=== PATIENT | male | born 1975 | race Caucasian/White ===

== ENCOUNTER 2024-08-26 01:49 | Observation (INO) | payer SELFPAY ==
[2024-08-26] VITALS (21 sets, daily range): BP systolic 104–158; BP diastolic 77–121; PULSE 90–136; RESP 14–18; TEMP 36.4–36.8; O2SAT 93–100; BMI 24.7; BMI 27.3
--- NOTE | 2024-08-26 | ECHO_ITS ---
Patient Info Name: Khurram Cote Age: 49 years : 1975 Gender: Male Ht: 66 in Wt: 153 lbs BSA: 1.81 m2 HR: 112 bpm BP: 143 / 94 mmHg Heart Rhythm: Tachycardia Technical Quality: Fair Exam Date: 08/26/2024 9:12 AM Exam Location: Echo Lab Patient Status: Inpatient Admit Date: 08/26/2024 Staff Ordering Physician: Rita Cade APRN Ornamental Metalwork Designer: Mariposa Ge RDCS Attending Provider: Jimmy Galeas MD Referring Physician: Rayo MCCARTHY; Exam Type: CA echo doppler color flow Study Info Indications - Chesy pain Complete two-dimensional, color flow and Doppler transthoracic echocardiogram is performed. Summary 1. Complete two-dimensional, color flow and Doppler transthoracic echocardiogram is performed. 2. The left ventricle is normal in size with hyperdynamic systolic function. Left ventricular ejection fraction is visually estimated to be greater than 70%. 3. The right ventricle is normal in size and systolic function. 4. There are no significant valvular abnormalities in this study. Left Ventricle The left ventricle is normal in size with hyperdynamic systolic function. Left ventricular ejection fraction is visually estimated to be greater than 70%. Right Ventricle The right ventricle is normal in size and systolic function. Left Atria The left atrium is normal size. Right Atria The right atrium is normal size. Atrial Septum The atrial septum is not well visualized. Aortic Valve The aortic valve is trileaflet and opens well. There is no aortic regurgitation. Pulmonic Valve The pulmonic valve is normal. There is no pulmonic valve regurgitation. Mitral Valve The mitral valve is normal. There is no mitral regurgitation. Tricuspid Valve The tricuspid is normal. There is trace tricuspid regurgitation. Pericardium/Pleural Pericardium is normal in appearance with no evidence for significant pericardial effusion. Inferior Vena Cava Inferior vena cava is not well visualized. Aorta The aortic root at the level of the sinus of Valsalva measures 3.3 cm in diameter. Left Ventricular Outflow Tract Name Value Normal LVOT 2D LVOT Diameter 2.1 cm LVOT Doppler LVOT Peak Gradient 5 mmHg LVOT Mean Gradient 3 mmHg LVOT VTI 18 cm LVOT VTI/AV VTI Ratio 0.9 LVOT Stroke Volume 61 ml LVOT CO 6.3 l/min LVOT CI 3.5 l/min/m2 Pulmonic Valve Name Value Normal RVOT Doppler RVOT Peak Gradient 3 mmHg PV Doppler PV Peak Gradient 4 mmHg Mitral Valve Name Value Normal MV Doppler MV Decel [place] 231 cm/s2 MV PHT 62 ms MV Area (PHT) 3.5 cm2 4.0-5.0 MV Diastolic Function MV E Peak Velocity 50 cm/s MV A Peak Velocity 76 cm/s MV E/A 0.6 MV Decel Time 215 ms MV Annular TDI MV E/e' (Septal) 6.3 <=8.0 MV E/e' (Lateral) 6.1 <=8.0 MV E/e' (Average) 6.2 Tricuspid Valve Name Value Normal TV Regurgitation Doppler TR Peak Velocity 217 cm/s TR Peak Gradient 19 mmHg Aortic Valve Name Value Normal AV Doppler AV Peak Velocity 126 cm/s AV Peak Gradient 6 mmHg AV Mean Gradient 4 mmHg AV VTI 19 cm AV Area (Cont Eq VTI) 3.3 cm2 >=3.0 AV Area (Cont Eq [place]) 3.2 cm2 AV Regurgitation 2D LVOT Area 3.5 cm2 Ventricles Name Value Normal LV Dimensions 2D/MM IVS Diastolic Thickness (2D) 0.9 cm 0.6-1.0 LVID Diastole (2D) 5.1 cm 4.2-5.8 LVIW Diastolic Thickness (2D) 0.9 cm 0.6-1.0 LVID Systole (2D) 3.2 cm 2.5-4.0 LVOT Diameter 2.1 cm LV Mass (2D Cubed) 154.63 g 88.00-224.00 LV Mass Index (2D Cubed) 86 g/m2 49-115 Relative Wall Thickness (2D) 0.35 LV Fractional Shortening/Ejection Fraction 2D/MM LV Fractional Shortening (2D) 38 % 25-43 LV EF (2D Teicholz) 67 % 52-72 LV Diastolic Volume (4C MOD) 100 ml LV EF (4C MOD) 68 % LV Diastolic Volume (2C MOD) 95 ml LV EF (2C MOD) 68 % LV Diastolic Volume (BP MOD) 99 ml 62-150 LV Diastolic Volume Index (BP MOD) 55 ml/m2 34-74 LV Systolic Volume (BP MOD) 33 ml 21-61 LV Systolic Volume Index (BP MOD) 18 ml/m2 11-31 LV EF (BP MOD) 67 % 52-72 LV Diastolic Length (4C) 7.9 cm LV Systolic Length (4C) 5.6 cm LV Stroke Volume (4C MOD) 68 ml Atria Name Value Normal LA Dimensions LA Volume (4C A-L) 50 ml LA Volume (BP A-L) 45 ml RA Dimensions RA Area (4C) 12.2 cm2 <=18.0 Report Signatures
--- NOTE | ~2024-08-26 | XR_ITS ---
EXAMINATION: XR chest 1V portable DATE: 08/26/2024 02:40 INDICATION: Chest pain. TECHNIQUE: A single frontal view of the chest was obtained. COMPARISON: Chest CT 08/26/2024 FINDINGS: There is no pneumonia, pleural effusion, or pneumothorax. The heart size is normal. IMPRESSION: 1. No acute cardiopulmonary disease. Reviewed, dictated and finalized at location A.
--- NOTE | ~2024-08-26 | CT_ITS ---
EXAMINATION: CTA chest PE protocol DATE: 08/26/2024 03:14 INDICATION: Chest pain. TECHNIQUE: Computed tomography angiography (CTA) of the chest was performed with 100 mL Omnipaque-350 intravenous contrast timed to evaluate the pulmonary arteries. Coronal maximum intensity projection 3D-reconstructions were created by the technologist. Automated exposure control and iterative reconst ruction technique were employed. The dose-length product was 288.44 mGy-cm. COMPARISON: Chest single view 08/26/2024 FINDINGS: The lungs demonstrate mild atelectasis. A calcified left lung nodule is consistent with old granulomatous disease. No pleural effusion. The heart size is normal. No pericardial effusion. There is no pulmonary embolus. There is diffuse hepatic steatosis. There is mild thoracic spondylosis. IMPRESSION: 1. No pulmonary embolus. 2. Diffuse hepatic steatosis. Reviewed, dictated and finalized at location A.
--- NOTE | 2024-08-26 02:04 | ECG_ITS ---
Test Date: 2024-08-26 01:48:56 Measurements Intervals [place] Rate: 122 P: 71 MA: 139 QRS: 6 QRSD: 110 T: 34 QT: 305 QTc: 435 Interpretive Statements SINUS TACHYCARDIA INDETERMINATE AXIS ABNORMAL RHYTHM ECG No previous ECG available for comparison Electronically Signed On 08-26-2024 11:45:19 CDT by Shaggy Talley M.D.
--- NOTE | 2024-08-26 02:05 | ED_ITS ---
HPI - Alcohol General Chief Complaint: Alcohol <Albania Melendez PA-C - Last Filed: 08/26/24 03:31> Stated Complaint: Alcohol <Albania Melendez PA-C - Last Filed: 08/26/24 03:31> Time Seen by Provider: 08/26/24 01:55 <Albania Melendez PA-C - Last Filed: 08/26/24 03:31> History of Present Illness HPI narrative: 49-year-old male with reported history of IL 4 years ago and ETOH abuse presents to the ED via EMS for ETOH withdrawals. Patient states he has been drinking a 5th of whiskey a day since he was 14 years old. He has attempted to stop intermittently without success. States at 6:00 p.m. yesterday evening he had his last drink and stopped cold turkey and hopes to not drink anymore. States he woke up at midnight with pain to the center of his chest that feels like someone is ?poking him?. He states he developed intermittent dyspnea, headache, tremors, anxiety the times well. Patient denies history of cardiac stents. He does admit to a history of alcohol withdrawal seizures about 5 years ago. He denies history of requiring intubation due to alcohol withdrawal. Denies drug use. <Albania Melendez PA-C - Last Filed: 08/26/24 03:31> Related Data Home Medications: Home Medications ?Medication ?Instructions ?Recorded ?Confirmed ?Last Taken ?Type famotidine 20 mg tablet (Acid 20 mg PO DAILY PRN indigestion 08/26/24 08/26/24 Unknown History Controller) multivitamin (Daily Multi-Vitamin 1 tablet PO DAILY 08/26/24 08/26/24 Unknown History tablet) <DOM Villa Last Filed: 08/26/24 03:31> Allergies/Adverse Reactions: Allergies Allergy/AdvReac Type Severity Reaction Status Date / Time No Known Allergies Allergy Verified 08/26/24 01:54 <DOM Villa Last Filed: 08/26/24 03:31> Review of Systems 2 Review of Systems: All systems reviewed & are unremarkable except as noted in HPI and below <Albania Melendez PA-C - Last Filed: 08/26/24 03:31> [facility] Past Medical History Medical History: Medical History Myocardial infarct Hepatic steatosis Alcohol abuse <Albania Melendez PA-C - Last Filed: 08/26/24 03:31> Family History Family History: Family History Other Unknown family medical history <Albania Melendez PA-C - Last Filed: 08/26/24 03:31> Social History Social History: Social History Smoking status: Current every day smoker Tobacco type: e-cigarettes/vaping Alcohol intake: current Substance use: never Last use: 08/25/24 @1800 Do You Feel Safe in your Home?: Yes Lack of Transportation: No Lack of Food: Sometimes True Current Housing: I Do Not Have Housing Concerned About Future Housing: YES Difficulty Paying Gas/Electric Bills: No Difficulty Paying for Meds: No Currently Unemployed: YES Education: Grade School Difficulty w/ Childcare or Family Care: No Spiritual care concerns: No <Albania Melendez PA-C - Last Filed: 08/26/24 03:31> Exam 2 Narrative: GENERAL: Ill-appearing, smells of ETOH HEAD: Normocephalic, atraumatic. EYES: PERRLA and EOMI. ENT: Nares clear, no rhinorrhea or epistaxis. Mucous membranes moist. Tongue fasciculations NECK: Supple. CHEST: Clear to auscultation. No respiratory distress. HEART: Regular rate and rhythm. No murmur heard. Normal peripheral pulses. ABDOMEN: Soft, nontender, nondistended, normal active bowel sounds. EXTREMITIES: Normal range of motion. No edema. SKIN: Warm, dry, no rash. NEURO: No focal deficits. Alert and oriented x4. Course tremors throughout bilateral upper extremities <Albania Melendez PA-C - Last Filed: 08/26/24 03:31> Course DAY CARE ATTENDANT/PA Physician Supervision PA signed patietn out to me pending result of CT PE study which was performed because patient had complained of CP and had dimer >1. CIWA score initially 16 then 14. Received Valium doses. Patient still having symptoms per RN. CIWA calculated and improved but still 12. Phenobarbital ordered. CT results as below. Discussed with computer numerical control grinder hospitalist NICOLE Salinas. Patient to be admitted to IMU with telemetry. <Loren Wong MD - Last Filed: 08/26/24 10:07> Vital Signs Vital signs: Vital Signs Temperature 97.5 F L 08/26/24 01:55 Pulse Rate 113 H 08/26/24 01:55 Respiratory Rate 16 08/26/24 01:55 Blood Pressure 158/121 H 08/26/24 01:55 Pulse Oximetry 96 08/26/24 01:55 Oxygen Delivery Room Air 08/26/24 01:55 Temperature 98.3 F 08/26/24 08:00 Pulse Rate 136 H 08/26/24 08:00 Respiratory Rate 16 08/26/24 08:00 Blood Pressure 121/91 H 08/26/24 08:00 Pulse Oximetry 98 08/26/24 08:00 Oxygen Delivery Room Air 08/26/24 06:39 <Albania Melendez PA-C - Last Filed: 08/26/24 03:31> Vital Signs Temperature 97.5 F L 08/26/24 01:55 Pulse Rate 113 H 08/26/24 01:55 Respiratory Rate 16 08/26/24 01:55 Blood Pressure 158/121 H 08/26/24 01:55 Pulse Oximetry 96 08/26/24 01:55 Oxygen Delivery Room Air 08/26/24 01:55 Temperature 98.3 F 08/26/24 08:00 Pulse Rate 136 H 08/26/24 08:00 Respiratory Rate 16 08/26/24 08:00 Blood Pressure 121/91 H 08/26/24 08:00 Pulse Oximetry 98 08/26/24 08:00 Oxygen Delivery Room Air 08/26/24 06:39 <Loren Wong MD - Last Filed: 08/26/24 10:07> MDM - Alcohol MDM Narrative Medical decision making narrative: 49-year-old male with a history of ETOH abuse and IL 4 years ago presents to emergency department for chest pain that started at midnight and EtOH withdrawal. Patient's last drink was 8 hours ago. He is endorsing anxiety, headache, tremors. CIWA is 16. Vitals with tachycardia 113 and elevated blood pressure. On exam patient is noted to have coarse tremors to bilateral upper extremities and tongue fasciculations. Will provide IV fluids, Valium, thiamine and obtain lab work, EKG, troponins, chest x-ray and closely monitor. Seizure precautions ordered. EKG shows sinus tachycardia rate of 122, normal NC interval, normal QRS duration, normal QTC, indeterminate axis, no ischemic changes. Troponin undetectable. CBC without leukocytosis or anemia. Platelets are 40, no prior for comparison. Chemistries with an AST 177 and ALT of 78 consistent with chronic alcohol abuse. Lipase is within normal limits. ETOH is 229. INR 0.9. D-dimer elevated to 1.98, therefore CTA chest PE obtained. Pt did require repeat doses of Valium with improvement. Tachycardia has resolved. Pending CTA chest PE at time of sign-out to Dr. Wong. Plan to admit for ETOH withdrawal. <Albania Melendez PA-C - Last Filed: 08/26/24 03:31> Lab Data Result diagrams: 08/26/24 02:14 08/26/24 02:14 <Albania Melendez PA-C - Last Filed: 08/26/24 03:31> Labs: Lab Results 08/26/24 Range/Units 02:14 WBC 5.3 (4.5-10.0) K/mm3 RBC 4.22 L (4.6-6.20) M/mm3 Hgb 15.0 (14.0-18.0) g/dL Hct 42.7 (42.0-52.0) % MCV 101.2 H (80-100) fl MCH 35.5 H (26-34) pg MCHC 35.1 (32-36) g/dl RDW 13.9 (11.5-14.5) % Plt Count 40 L (150-375) k/mm3 MPV 11.0 H (7.4-10.4) fl Immature Gran % (Auto) 0.2 (0-0.5) % Neut % (Auto) 65.8 (45.5-73.1) % Lymph % (Auto) 21.3 (18.3-44.2) % [place] % (Auto) 10.3 H (2.6-8.5) % Eos % (Auto) 1.1 (0-4.4) % Baso % (Auto) 1.3 H (0.2-1.2) % Lymph # (Auto) 1.12 (0.9-3.2) K/mm3 [place] # (Auto) 0.5 (0.1-0.6) K/mm3 Eos # (Auto) 0.1 (0-0.3) K/mm3 Baso # (Auto) 0.1 (0.0-0.1) K/mm3 Abs Immat Gran (auto) 0.01 (0.00-0.031) K/mm3 Absolute Neuts (auto) 3.5 (1.3-6.7) K/mm3 Absolute Nucleated RBC 0.000 (0.0-0.012) K/mm3 Nucleated RBC % 0.0 (0.0-0.2) % % Immature Plt Fraction 7.9 (0.9-11.2) % PT 12.7 (11.1-14.7) Seconds INR 0.9 APTT 26.0 (22.3-36.8) Seconds D-Dimer 1.98 H (<0.48) ug/mL Sodium 140 (137-145) mmol/L Potassium 3.9 (3.4-5.0) mmol/L Chloride 98 (98-107) mmol/L Carbon Dioxide 23 (22-30) mmol/L Anion Gap 19 H (4-12) mmol/L BUN 6 L (9-20) mg/dL Creatinine 0.55 L (0.7-1.3) mg/dL Estim Creat Clear Calc 125 ml/min Estimated GFR > 60 (59 - ) Glucose 80 (65-110) mg/dL Calcium 9.3 (8.4-10.2) mg/dL Total Bilirubin 0.9 (0.2-1.3) mg/dL AST 177 H (17-59) U/L ALT 78 H (6-50) U/L Alkaline Phosphatase 85 (38-126) U/L Troponin I < 0.012 (0.000-0.034) ng/mL NT-Pro-B Natriuret Pep < 20 (19.9-100) pg/mL Total Protein 8.0 (6.3-8.2) g/dL Albumin 4.9 (3.5-5.1) g/dL Lipase 154 (23-300) U/L Ethyl Alcohol 229 (<10) mg/dL <Albania Melendez PA-C - Last Filed: 08/26/24 03:31> Lab Results 08/26/24 Range/Units 02:14 WBC 5.3 (4.5-10.0) K/mm3 RBC 4.22 L (4.6-6.20) M/mm3 Hgb 15.0 (14.0-18.0) g/dL Hct 42.7 (42.0-52.0) % MCV 101.2 H (80-100) fl MCH 35.5 H (26-34) pg MCHC 35.1 (32-36) g/dl RDW 13.9 (11.5-14.5) % Plt Count 40 L (150-375) k/mm3 MPV 11.0 H (7.4-10.4) fl Immature Gran % (Auto) 0.2 (0-0.5) % Neut % (Auto) 65.8 (45.5-73.1) % Lymph % (Auto) 21.3 (18.3-44.2) % [place] % (Auto) 10.3 H (2.6-8.5) % Eos % (Auto) 1.1 (0-4.4) % Baso % (Auto) 1.3 H (0.2-1.2) % Lymph # (Auto) 1.12 (0.9-3.2) K/mm3 [place] # (Auto) 0.5 (0.1-0.6) K/mm3 Eos # (Auto) 0.1 (0-0.3) K/mm3 Baso # (Auto) 0.1 (0.0-0.1) K/mm3 Abs Immat Gran (auto) 0.01 (0.00-0.031) K/mm3 Absolute Neuts (auto) 3.5 (1.3-6.7) K/mm3 Absolute Nucleated RBC 0.000 (0.0-0.012) K/mm3 Nucleated RBC % 0.0 (0.0-0.2) % % Immature Plt Fraction 7.9 (0.9-11.2) % PT 12.7 (11.1-14.7) Seconds INR 0.9 APTT 26.0 (22.3-36.8) Seconds D-Dimer 1.98 H (<0.48) ug/mL Sodium 140 (137-145) mmol/L Potassium 3.9 (3.4-5.0) mmol/L Chloride 98 (98-107) mmol/L Carbon Dioxide 23 (22-30) mmol/L Anion Gap 19 H (4-12) mmol/L BUN 6 L (9-20) mg/dL Creatinine 0.55 L (0.7-1.3) mg/dL Estim Creat Clear Calc 125 ml/min Estimated GFR > 60 (59 - ) Glucose 80 (65-110) mg/dL Calcium 9.3 (8.4-10.2) mg/dL Total Bilirubin 0.9 (0.2-1.3) mg/dL AST 177 H (17-59) U/L ALT 78 H (6-50) U/L Alkaline Phosphatase 85 (38-126) U/L Troponin I < 0.012 (0.000-0.034) ng/mL NT-Pro-B Natriuret Pep < 20 (19.9-100) pg/mL Total Protein 8.0 (6.3-8.2) g/dL Albumin 4.9 (3.5-5.1) g/dL Lipase 154 (23-300) U/L Ethyl Alcohol 229 (<10) mg/dL <Loren Wong MD - Last Filed: 08/26/24 10:07> Imaging Data Radiologist's impression: ITS Impressions Chest X-Ray 08/26/24 05:28 IMPRESSION: 1. No acute cardiopulmonary disease. Chest CTA 08/26/24 05:46 IMPRESSION: 1. No pulmonary embolus. 2. Diffuse hepatic steatosis. <Albania Melendez PA-C - Last Filed: 08/26/24 03:31> ITS Impressions Chest X-Ray 08/26/24 05:28 IMPRESSION: 1. No acute cardiopulmonary disease. Chest CTA 08/26/24 05:46 IMPRESSION: 1. No pulmonary embolus. 2. Diffuse hepatic steatosis. CTA Chest STat Rad: Additional imaging of the abdomen was obtained. Motion artifact limits evaluation. Despite this, no evidence of pulmonary embolism within the pulmonary outflow tract or proximal branches. Mild dependent atelectatic changes. Dependent hepatic attenuation index. Findings can be seen with hepatic steatosis. Otherwise, no acute findings within the chest or visualized abdomen. <Loren Wong MD - Last Filed: 08/26/24 10:07> Discharge Plan Discharge Clinical Impression: Thrombocytopenia, Atypical chest pain Alcohol withdrawal Qualifiers: Complication of substance-induced condition: uncomplicated Qualified Code(s): F 10.930 - Alcohol use, unspecified with withdrawal, uncomplicated <Albania Melendez PA-C - Last Filed: 08/26/24 03:31> Patient Disposition: Still a Patient <Albania Melendez PA-C - Last Filed: 08/26/24 03:31> Condition: Stable <Albania Melendez PA-C - Last Filed: 08/26/24 03:31>
[2024-08-26] MEDS: diazePAM INJ (*CRX) 10 MG/2 ML SYRINGE 5 MG IV PUSH ×3 (02:09→03:34)
[2024-08-26] MEDS: THIAMINE HCL 200 MG/2 ML VIAL 100 MG IV PUSH (02:09)
[2024-08-26] MEDS: SODIUM CHLORIDE 0.9% IV 1,000 ML 999 ML IV CONT (02:12)
[2024-08-26 02:22] LABS: Basophils Absolute Auto 0.1 K/mm3 (0.0-0.1); Basophils Percent Auto 1.3 % (0.2-1.2); Eosinophils Absolute Auto 0.1 K/mm3 (0-0.3); Eosinophils Percent Auto 1.1 % (0-4.4); Hematocrit 42.7 % (42.0-52.0); Immature Granulocyte Absolute 0.01 K/mm3 (0.00-0.031); Immature Granulocyte Percent A 0.2 % (0-0.5); Immature Platelet Fraction Pct 7.9 % (0.9-11.2); Lymphocytes Absolute Auto 1.12 K/mm3 (0.9-3.2); Lymphocytes Percent Auto 21.3 % (18.3-44.2); Mean Corpuscular HGB Conc 35.1 g/dl (32-36); Mean Corpuscular Hemoglobin 35.5 pg (26-34); Mean Corpuscular Volume 101.2 fl (80-100); Monocytes Absolute Auto 0.5 K/mm3 (0.1-0.6); Monocytes Percent Auto 10.3 % (2.6-8.5); Neutrophils Absolute Auto 3.5 K/mm3 (1.3-6.7); Neutrophils Percent Auto 65.8 % (45.5-73.1); Platelet Count Result 40 k/mm3 (150-375); Red Blood Count 4.22 M/mm3 (4.6-6.20); Red Cell Distribution Width 13.9 % (11.5-14.5); White Blood Count 5.3 K/mm3 (4.5-10.0)
[2024-08-26 02:31] LABS: INR 0.9; Prothrombin Time 12.7 Seconds (11.1-14.7)
[2024-08-26 02:32] LABS: Ethanol 229 mg/dL (<10)
[2024-08-26 02:35] LABS: Alanine Aminotransferase 78 U/L (6-50); Albumin Level 4.9 g/dL (3.5-5.1); Alkaline Phosphatase 85 U/L (38-126); Anion Gap 19 mmol/L (4-12); Aspartate Amino Transferase 177 U/L (17-59); Bilirubin,Total 0.9 mg/dL (0.2-1.3); Blood Urea Nitrogen 6 mg/dL (9-20); Calcium 9.3 mg/dL (8.4-10.2); Carbon Dioxide 23 mmol/L (22-30); Chloride 98 mmol/L (98-107); Estimated CRCL calculation 125 ml/min; Estimated Glomerular Filt Rate > 60; Glucose 80 mg/dL (65-110); Lipase 154 U/L (23-300); Potassium 3.9 mmol/L (3.4-5.0); Sodium 140 mmol/L (137-145)
[2024-08-26 02:43] LABS: D Dimer 1.98 ug/mL (<0.48)
[2024-08-26 02:53] LABS: Troponin I < 0.012 ng/mL (0.000-0.034)
[2024-08-26 03:03] LABS: NT Pro B Type Natriuretic Pept < 20 pg/mL (19.9-100)
[2024-08-26] MEDS: PHENobarbitaL sodium (*CRX) 130 MG/ML VIAL 260 MG IV PUSH (04:56)
--- NOTE | 2024-08-26 05:36 | P.HP_ITS ---
H&P: HPI History of Present Illness Date/Time: 08/26/24 05:36 Chief Complaint: Alcohol withdrawal Narrative: This is a 49 year old male with a significant past medical history of [place], ETOH abuse, tobacco abuse who presented to the hospital with alcohol withdrawal and chest pain. Patient states he has drank a 5th of whiskey a day since he was 14 years old. He has tried stopping cold turkey before however has been unsuccessful in the past. Patient states that his last alcohol was consumed at 6 pm last night. He went to bed and woke up around midnight with substernal chest pain. He describes it as intermittent and does not radiate. He denies any fever, chills, nausea, vomiting, diarrhea, abdominal pain, or shortness of breath. Work up in the hospital included a chest x-ray which was negative for any acute cardiopulmonary disease. Chest CTA was negative for PE, shown diffuse hepatic steatosis. Initial labs shown a WBC 5.3, RBC 4.22, Plt count 40, D-dimer 1.98, Anion gap 19, Creatinine 0.55, AST 177, ALT 78, Troponin <0.012, ETOH 229. EKG shown sinus tachycardia with incomplete bundle branch block with a rate of 122, QTc 435. Patient was given 1L NS, Valium and Phenobarbital in the ER. Review of Systems Review of Systems: All systems reviewed & are unremarkable except as noted in HPI and below PMFSH Past Medical History Medical History Myocardial infarct Hepatic steatosis Alcohol abuse Family History Family History Other Unknown family medical history Social History Social History Smoking status: Current every day smoker Tobacco type: e-cigarettes/vaping Alcohol intake: current Substance use: never Last use: 08/25/24 @1800 Do You Feel Safe in your Home?: Yes Lack of Transportation: No Lack of Food: Sometimes True Current Housing: I Do Not Have Housing Concerned About Future Housing: YES Difficulty Paying Gas/Electric Bills: No Difficulty Paying for Meds: No Currently Unemployed: YES Education: Grade School Difficulty w/ Childcare or Family Care: No Spiritual care concerns: No Meds Home Medications and Allergies Home Medications ?Medication ?Instructions ?Recorded ?Confirmed ?Type famotidine 20 mg tablet (Acid 20 mg PO DAILY PRN indigestion 08/26/24 08/26/24 History Controller) multivitamin (Daily Multi-Vitamin 1 tablet PO DAILY 08/26/24 08/26/24 History tablet) Allergies Allergy/AdvReac Type Severity Reaction Status Date / Time No Known Allergies Allergy Verified 08/26/24 01:54 Vital Signs Vital Signs - 24 hr 08/26/24 01:55 08/26/24 02:17 Temperature 97.5 F L Pulse Rate 113 H 112 H Respiratory Rate 16 14 Blood Pressure 158/121 H 134/97 H Pulse Oximetry 96 93 Oxygen Delivery Room Air Exam Narrative: General: In no acute distress, malnourished Head: atraumatic, no encephalopathy, reporting headache Eyes: PERRLA, sclera injected ENT: moist mucous membranes, nasal passages clear Neck: supple, no JVD, no adenopathy, trachea midline Cardiac: Normal S1 and S2. RRR, No murmur, gallops or friction rubs, peripheral pulses intact. Reports substernal chest pain intermittently Respiratory: Lungs clear to auscultation, no adventitious lung sounds, currently on room air Gastrointestinal: soft, non-distended, non-tender, normoactive bowel sounds. : voiding without difficulty. Extremities: moves all extremities well, no edema Skin: clean, dry, intact. No wounds or lesions. Neuro: Alert and oriented x4, cranial nerves intact, no neuro deficits. Psych: normal mood, normal affect, interactive H&P: Results Labs Labs: Short CBC 08/26/24 Range/Units 02:14 WBC 5.3 (4.5-10.0) K/mm3 Hgb 15.0 (14.0-18.0) g/dL Hct 42.7 (42.0-52.0) % Plt Count 40 L (150-375) k/mm3 BMP 08/26/24 02:14 Sodium 140 Potassium 3.9 Chloride 98 Carbon Dioxide 23 BUN 6 L Creatinine 0.55 L Glucose 80 Calcium 9.3 Cardiac Enzymes 08/26/24 Range/Units 02:14 Troponin I < 0.012 (0.000-0.034) ng/mL Liver Function 08/26/24 Range/Units 02:14 Total Bilirubin 0.9 (0.2-1.3) mg/dL AST 177 H (17-59) U/L ALT 78 H (6-50) U/L Alkaline Phosphatase 85 (38-126) U/L Albumin 4.9 (3.5-5.1) g/dL Imaging Chest x-ray: Radiologist's impression: EXAMINATION: XR chest 1V portable DATE: 08/26/2024 02:40 INDICATION: Chest pain. TECHNIQUE: A single frontal view of the chest was obtained. COMPARISON: Chest CT 08/26/2024 FINDINGS: There is no pneumonia, pleural effusion, or pneumothorax. The heart size is normal. IMPRESSION: 1. No acute cardiopulmonary disease. Reviewed, dictated and finalized at location A. Chest CTA: Radiologist's impression: EXAMINATION: CTA chest PE protocol DATE: 08/26/2024 03:14 INDICATION: Chest pain. TECHNIQUE: Computed tomography angiography (CTA) of the chest was performed with 100 mL Omnipaque-350 intravenous contrast timed to evaluate the pulmonary arteries. Coronal maximum intensity projection 3D-reconstructions were created by the technologist. Automated exposure control and iterative reconstruction technique were employed. The dose-length product was 288.44 mGy-cm. COMPARISON: Chest single view 08/26/2024 FINDINGS: The lungs demonstrate mild atelectasis. A calcified left lung nodule is consistent with old granulomatous disease. No pleural effusion. The heart size is normal. No pericardial effusion. There is no pulmonary embolus. There is diffuse hepatic steatosis. There is mild thoracic spondylosis. IMPRESSION: 1. No pulmonary embolus. 2. Diffuse hepatic steatosis. Reviewed, dictated and finalized at location A. Assessment and Plan Assessment and plan (1) Atypical chest pain: Code(s): R07.89 - Other chest pain Status: Acute Assessment and Plan: Reports waking up around midnight with midsternal chest pain * EKG shown sinus tachycardia with incomplete right bundle branch block with a rate of 122, QTc 435 * continuous telemetry monitoring * Admit to IMU * chest x-ray negative * Chest CTA was negative for PE, shown diffuse hepatic steatosis. * D-dimer 1.98, troponin 0.012>0.015 * Echocardiogram ordered considering history of [place] (2) Alcohol withdrawal: Qualifiers: Complication of substance-induced condition: uncomplicated Qualified Code(s): F10.930 - Alcohol use, unspecified with withdrawal, uncomplicated Code(s): F10.939 - Alcohol use, unspecified with withdrawal, unspecified Status: Acute Assessment and Plan: Patient states that he drank last a 5th of whisky yesterday evening. He states he drinks a 5th of whiskey every day since he was 14 years old. He attempted stopping before and has been unsuccessful. Patient states he has went through withdrawal in the past and has had seizures. l * [facility] protocol * ETOH level 229 on presentation * Patient was given Valium and phenobarbital down in the ER * Continue seizure precautions * thiamin 500 mg IVPB ordered daily * Continue Multivitamin * Start folic acid * Industrial Specialist consult * Consult to case management (3) Thrombocytopenia: Code(s): D69.6 - Thrombocytopenia, unspecified Status: Acute Assessment and Plan: Likely secondary to alcoholism/ liver disease * Platelet count 40 * Will check vitamin B12 and folic acid * Consult placed to Hematology/Oncology (4) Transaminitis: Code(s): R74.01 - Elevation of levels of liver transaminase levels Status: Acute Assessment and Plan: * AST 177, ALT 78 * Continue to trend * CTA of the chest shown diffuse hepatic steatosis Quality VTE Prophylaxis VTE prophylaxis: mechanical ordered Hospitalist [facility] Advance Care Plan I have confirmed that the patient's Advanced Care Plan is present, code status is documented, or surrogate decision maker is listed in patient medical record.: Yes Medication Reconciliation I have utilized all available resources to obtain, update and review the patients current medications (includes all prescriptions, OTC, herbals, cannabis, and nutritional supplements).: Yes
--- NOTE | 2024-08-26 06:00 | ADMGEN ---
This patient, Khurram Cote, was admitted to IMU Room 205-01. Patient/family oriented to hospital policies and general routines including ID bracelet, bed and alarms, visiting hours, pain management, procedures, bathroom and other care routines, personal items, smoking policy, room service/diet, and visiting hours. Information on how to activate the Rapid Response Team has been discussed. Patient/Family are encouraged to report perceived risks to care and to ask questions if they do not understand what they are told or what they should do.
[2024-08-26 06:46] LABS: Troponin I 0.015 ng/mL (0.000-0.034)
[2024-08-26 07:12] LABS: Add Urine Microscopic? NO; Appearance Urine Clear (Clear); Bilirubin Urine Negative (Negative); Blood Urine Negative (Negative); Color Urine Yellow (Yellow); Glucose Urine UA Negative (Negative); Ketones Urine 1+ mg/dL (Negative); Leukocyte Esterase Ur Negative LEU/UL (Negative); Nitrate Urine Negative (Negative); Protein Urine Negative (Negative); Specific Grav Ur > 1.045 (1.001-1.035); pH Urine 6.5 (5.0-9.0)
[2024-08-26 07:25] LABS: Magnesium 1.3 mg/dL (1.6-2.3)
[2024-08-26 07:28] LABS: Amphetamine Screen Urine Negative (Negative); Barbiturate Screen Urine Positive (Negative); Benzodiazepines Screen Urine Negative (Negative); Cannabinoid Screen Urine Negative (Negative); Cocaine Screen Urine Positive (Negative); Methadone Screen Urine Negative (Negative); Opiate Screen Urine Negative (Negative); Phencyclidine Screen Urine Negative (Negative)
[2024-08-26 08:17] LABS: Troponin I 0.019 ng/mL (0.000-0.034)
[2024-08-26 08:58] LABS: Folic Acid 2.4 ng/mL (2.76->20)
[2024-08-26] MEDS: LORazepam INJ (*CRX) 2 MG/ML VIAL IV PUSH ×2 (09:18→20:10)
[2024-08-26] MEDS: MULTIVITAMINS THERAPEUTIC TAB (*BKC) 1 TABLET PO (09:18)
[2024-08-26] MEDS: FOLIC ACID 1 MG TABLET PO (09:18)
[2024-08-26] MEDS: THIAMINE HCL INJ 500 MG in SODIUM CHLORIDE 0.9% IV 100 ML 208 MG IVPB (10:42)
[2024-08-26] MEDS: chlordiazePOXIDE (*CRX) 25 MG CAPSULE PO ×2 (11:17→17:13)
[2024-08-26 11:28] LABS: Glucose Point of Care 118 mg/dl (65-105)
--- NOTE | 2024-08-26 12:34 | WPDONCCN ---
Assessment and Plan Assessment and plan (1) Thrombocytopenia: Code(s): D69.6 - Thrombocytopenia, unspecified Status: Acute Assessment and Plan: Patient is the 49-year-old male with history of alcohol abuse has been drinking alcohol since age of 14. He tried quitting alcohol but remains unsuccessful. CTA chest was performed due to chest discomfort showed hepatic steatosis. There was no evidence of pulmonary embolism[place] [address] but he has no symptoms of bleeding and bruising. His thrombocytopenia secondary to hepatic steatosis and alcohol-induced bone marrow suppression. I recommended strongly to quit drinking slowly. Other labs showed normal vitamin B12 level. I will check iron studies as well. He will follow-up in the office for further monitoring of his platelet counts. No need for bone marrow biopsy or testing and testing for autoimmune thrombocytopenia as the etiology for his thrombocytopenia is quite evident. Follow-up in the office after the discharge. HPI Data of Consult Date/Time: 08/26/24 12:34 Requesting Physician: Roderick Galeas MD Primary Care Provider: UNKNOWN,DOCTOR Consult Narrative Narrative: Khurram Cote is a 49 year old male with history of alcohol abuse and previous history of [place] was brought into the hospital with alcohol withdrawal symptoms and chest discomfort. He denies any fever chills. Denies any nausea vomiting and abdominal pain. CTA chest was done that showed no evidence of pulmonary embolism. There was diffuse hepatic steatosis[place] [address] with elevated D-dimer of 1.98. He denies any bleeding including melena and hematochezia. Has been drinking heavily since age of 14 and has tried quitting drinking many time but remains unsuccessful. Review of Systems Review of Systems: Review of system as per HPI otherwise negative [facility] Past Medical History Medical History Myocardial infarct Hepatic steatosis Alcohol abuse Family History Family History Other Unknown family medical history Social History Social History Smoking status: Current every day smoker Tobacco type: e-cigarettes/vaping Alcohol intake: current Substance use: never Last use: 08/25/24 @1800 Do You Feel Safe in your Home?: Yes Lack of Transportation: No Lack of Food: Sometimes True Current Housing: I Do Not Have Housing Concerned About Future Housing: YES Difficulty Paying Gas/Electric Bills: No Difficulty Paying for Meds: No Currently Unemployed: YES Education: Grade School Difficulty w/ Childcare or Family Care: No Spiritual care concerns: No Meds Home Medications and Allergies Home Medications ?Medication ?Instructions ?Recorded ?Confirmed ?Type famotidine 20 mg tablet (Acid 20 mg PO DAILY PRN indigestion 08/26/24 08/26/24 History Controller) multivitamin (Daily Multi-Vitamin 1 tablet PO DAILY 08/26/24 08/26/24 History tablet) Allergies Allergy/AdvReac Type Severity Reaction Status Date / Time No Known Allergies Allergy Verified 08/26/24 01:54 Vital Signs Vital Signs - 24 hr 08/26/24 01:55 08/26/24 02:17 08/26/24 05:52 Temperature 36.4 C L Pulse Rate 113 H 112 H 99 Respiratory Rate 16 14 15 Blood Pressure 158/121 H 134/97 H 104/77 Pulse Oximetry 96 93 100 Oxygen Delivery Room Air 08/26/24 06:07 08/26/24 06:17 08/26/24 06:39 Temperature 36.7 C Pulse Rate 99 100 Respiratory Rate 18 Blood Pressure 143/94 H Pulse Oximetry 100 Oxygen Delivery Room Air 08/26/24 08:00 08/26/24 11:28 Temperature 36.8 C 36.7 C Pulse Rate 136 H 120 H Respiratory Rate 16 16 Blood Pressure 121/91 H 115/88 Pulse Oximetry 98 100 Oxygen Delivery Exam Narrative: Lungs are clear to auscultation bilaterally Cardiovascular regular rate rhythm no murmurs Abdomen soft nontender nondistended bowel sounds are positive Extremities no edema Results Labs 08/26/24 02:14 08/26/24 02:14 Labs: Short CBC 08/26/24 Range/Units 02:14 WBC 5.3 (4.5-10.0) K/mm3 Hgb 15.0 (14.0-18.0) g/dL Hct 42.7 (42.0-52.0) % Plt Count 40 L (150-375) k/mm3 BMP 08/26/24 02:14 Sodium 140 Potassium 3.9 Chloride 98 Carbon Dioxide 23 BUN 6 L Creatinine 0.55 L Glucose 80 Calcium 9.3 Cardiac Enzymes 08/26/24 08/26/24 08/26/24 Range/Units 02:14 06:19 07:41 Troponin I < 0.012 0.015 D 0.019 D (0.000-0.034) ng/mL Liver Function 08/26/24 Range/Units 02:14 Total Bilirubin 0.9 (0.2-1.3) mg/dL AST 177 H (17-59) U/L ALT 78 H (6-50) U/L Alkaline Phosphatase 85 (38-126) U/L Albumin 4.9 (3.5-5.1) g/dL Urine 08/26/24 Range/Units 06:52 Urine Color Yellow (Yellow) Urine Appearance Clear (Clear) Urine pH 6.5 (5.0-9.0) Ur Specific [place] > 1.045 H (1.001-1.035) Urine Protein Negative (Negative) mg/dL Urine Glucose (UA) Negative (Negative) mg/dL
[2024-08-26 13:10] LABS: Iron 183 ug/dL (49-181)
[2024-08-26 13:20] LABS: Percent Iron Saturation 78 % (20-50)
--- NOTE | 2024-08-26 14:57 | P.PNIM_ITS ---
Progress Note: A&P Assessment and Plan (1) Atypical chest pain: Code(s): R07.89 - Other chest pain Status: Acute Assessment and Plan: Reports waking up around midnight with midsternal chest pain * EKG shown sinus tachycardia with incomplete right bundle branch block with a rate of 122, QTc 435 * continuous telemetry monitoring * Admit to IMU * chest x-ray negative * Chest CTA was negative for PE, shown diffuse hepatic steatosis. * D-dimer 1.98, troponin 0.012>0.015 * Echocardiogram ordered considering history of [place] * * HR better now-100-110's (2) Alcohol withdrawal: Qualifiers: Complication of substance-induced condition: uncomplicated Qualified Code(s): F10.930 - Alcohol use, unspecified with withdrawal, uncomplicated Code(s): F10.939 - Alcohol use, unspecified with withdrawal, unspecified Status: Acute Assessment and Plan: Patient states that he drank last a 5th of whisky yesterday evening. He states he drinks a 5th of whiskey every day since he was 14 years old. He attempted stopping before and has been unsuccessful. Patient states he has went through withdrawal in the past and has had seizures. l * CIWA protocol * ETOH level 229 on presentation * Patient was given Valium and phenobarbital down in the ER * Continue seizure precautions * thiamin 500 mg IVPB ordered daily * Continue Multivitamin * Start folic acid * [employer] Up Operator consult * Consult to case management (3) Thrombocytopenia: Code(s): D69.6 - Thrombocytopenia, unspecified Status: Acute Assessment and Plan: Likely secondary to alcoholism/ liver disease * Platelet count 40 * Will check vitamin B12 and folic acid * Consult placed to Hematology/Oncology (4) Transaminitis: Code(s): R74.01 - Elevation of levels of liver transaminase levels Status: Acute Assessment and Plan: * AST 177, ALT 78 * Continue to trend * CTA of the chest shown diffuse hepatic steatosis * -will need GI outpt follow up Time Spent With Patient Time with patient: 25 - 35 minutes Subjective Date/time seen: 08/26/24 14:57 Interval history: 49 year old male with a significant past medical history of [place], ETOH abuse, tobacco abuse who presented to the hospital with alcohol withdrawal and chest pain. Patient states he has drank a 5th of whiskey a day since he was 14 years old. He has tried stopping cold turkey before however has been unsuccessful in the past. Patient states that his last alcohol was consumed at 6 pm last night. He went to bed and woke up around midnight with substernal chest pain. He describes it as intermittent and does not radiate. He denies any fever, chills, nausea, vomiting, diarrhea, abdominal pain, or shortness of breath. Work up in the hospital included a chest x-ray which was negative for any acute cardiopulmonary disease. Chest CTA was negative for PE, shown diffuse hepatic steatosis. Initial labs shown a WBC 5.3, RBC 4.22, Plt count 40, D-dimer 1.98, Anion gap 19, Creatinine 0.55, AST 177, ALT 78, Troponin <0.012, ETOH 229. EKG shown sinus tachycardia with incomplete bundle branch block with a rate of 122, QTc 435. Patient was given 1L NS, Valium and Phenobarbital in the ER. Pt is seen and examined. [facility] protocol ordered. Review of Systems Review of Systems: All systems reviewed & are unremarkable except as noted in HPI and below Exam Narrative: General: In no acute distress, malnourished Head: atraumatic, no encephalopathy, reporting headache Eyes: PERRLA, sclera injected ENT: moist mucous membranes, nasal passages clear Neck: supple, no JVD, no adenopathy, trachea midline Cardiac: Normal S1 and S2. RRR, No murmur, gallops or friction rubs, peripheral pulses intact. Reports substernal chest pain intermittently Respiratory: Lungs clear to auscultation, no adventitious lung sounds, currently on room air Gastrointestinal: soft, non-distended, non-tender, normoactive bowel sounds. : voiding without difficulty. Extremities: moves all extremities well, no edema Skin: clean, dry, intact. No wounds or lesions. Neuro: Alert and oriented x4, cranial nerves intact, no neuro deficits. Psych: normal mood, normal affect, interactive Const: General: comfortable Objective Data Vital Signs Vital Signs: Vital Signs - 24 hr 08/26/24 01:55 08/26/24 02:17 08/26/24 05:52 Temperature 97.5 F L Pulse Rate 113 H 112 H 99 Respiratory Rate 16 14 15 Blood Pressure 158/121 H 134/97 H 104/77 Pulse Oximetry 96 93 100 Oxygen Delivery Room Air 08/26/24 06:07 08/26/24 06:17 08/26/24 06:39 Temperature 98.0 F Pulse Rate 99 100 Respiratory Rate 18 Blood Pressure 143/94 H Pulse Oximetry 100 Oxygen Delivery Room Air 08/26/24 08:00 08/26/24 08:00 08/26/24 10:00 Temperature 98.3 F Pulse Rate 136 H 112 H 104 H Respiratory Rate 16 Blood Pressure 121/91 H Pulse Oximetry 98 Oxygen Delivery 08/26/24 11:28 08/26/24 12:00 Temperature 98.1 F Pulse Rate 120 H 101 H Respiratory Rate 16 Blood Pressure 115/88 Pulse Oximetry 100 Oxygen Delivery Intake/Output Intake/Output: Intake & Output 08/23/24 08/24/24 08/25/24 08/26/24 23:59 23:59 23:59 23:59 Intake Total 2200 Output Total 475 Balance 1725 Meds/Results Medications: Active Medications Generic Name Dose Route Start Last Admin Trade Name Freq PRN Reason Stop Dose Admin Acetaminophen 650 mg 08/26/24 04:55 Acetaminophen 325 Mg Tablet PO Q4H PRN Mild Pain (1-3) or Fever Chlordiazepoxide HCl 25 mg 08/26/24 12:00 08/26/24 11:17 Chlordiazepoxide (*Crx) 25 Mg Capsule PO 25 mg Q6HR MIRANDA Administration Famotidine 20 mg 08/26/24 06:33 Famotidine 20 Mg Tablet PO DAILY PRN indigestion Folic Acid 1 mg 08/26/24 09:00 08/26/24 09:18 Folic Acid 1 Mg Tablet PO 1 mg DAILY MIRANDA Administration Thiamine HCl 500 mg/ Sodium 105 mls @ 208 mls/hr 08/26/24 09:00 08/26/24 10:42 Chloride IVPB 208 mls/hr DAILY MIRANDA Administration Lorazepam 2 mg 08/26/24 06:33 08/26/24 09:18 Lorazepam Inj (*Crx) 2 Mg/Ml Vial IV PUSH 2 mg Q2H PRN Administration CIWA > 15 Multivitamins Therapeutic 1 tablet 08/26/24 09:00 08/26/24 09:18 Multivitamins Therapeutic Tab (*Bkc) PO 1 tablet DAILY MIRANDA Administration Ondansetron HCl 4 mg 08/26/24 04:55 Ondansetron Inj 4 Mg/2 Ml Vial IV PUSH Q4H PRN Nausea Perflutren Lipid Microsphere 0 ml 08/26/24 06:36 Perflutren Lipid Microspheres 1.5 Ml Vial Diluted To 10 Ml Total Volume IV PUSH 08/29/24 06:36 ONCE PRN adequate visualization Protocol Radiology Results: ITS Impressions Chest X-Ray 08/26/24 05:28 IMPRESSION: 1. No acute cardiopulmonary disease. Chest CTA 08/26/24 05:46 IMPRESSION: 1. No pulmonary embolus. 2. Diffuse hepatic steatosis. Labs Labs: Laboratory Results - last 24 hr 08/26/24 08/26/24 08/26/24 02:13 02:14 06:17 WBC 5.3 RBC 4.22 L Hgb 15.0 Hct 42.7 MCV 101.2 H MCH 35.5 H MCHC 35.1 RDW 13.9 Plt Count 40 L MPV 11.0 H Immature Gran % (Auto) 0.2 Neut % (Auto) 65.8 Lymph % (Auto) 21.3 Cache % (Auto) 10.3 H Eos % (Auto) 1.1 Baso % (Auto) 1.3 H Lymph # (Auto) 1.12 Cache # (Auto) 0.5 Eos # (Auto) 0.1 Baso # (Auto) 0.1 Abs Immat Gran (auto) 0.01 Absolute Neuts (auto) 3.5 Absolute Nucleated RBC 0.000 Nucleated RBC % 0.0 % Immature Plt Fraction 7.9 PT 12.7 INR 0.9 APTT 26.0 D-Dimer 1.98 H Sodium 140 Potassium 3.9 Chloride 98 Carbon Dioxide 23 Anion Gap 19 H BUN 6 L Creatinine 0.55 L Estim Creat Clear Calc 125 Estimated GFR > 60 Glucose 80 POC Capillary Glucose Calcium 9.3 Magnesium 1.3 L Iron 183 H TIBC 234 L % Saturation 78 H Ferritin 276.00 Total Bilirubin 0.9 AST 177 H ALT 78 H Alkaline Phosphatase 85 Troponin I < 0.012 NT-Pro-B Natriuret Pep < 20 Total Protein 8.0 Albumin 4.9 Lipase 154 Vitamin B12 651.0 Folate 2.4 L TSH 1.210 Urine Color Urine Appearance Urine pH Ur Specific [place] Urine Protein Urine Glucose (UA) Urine Ketones Ur Blood (Man) Urine Nitrate Urine Bilirubin Urine Urobilinogen Leukocyte Esterase Rfl Urine Opiates Screen Urine Methadone Screen Ur Barbiturates Screen Ur Phencyclidine Scrn Ur Amphetamine Screen U Benzodiazepines Scrn Urine Cocaine Screen U Cannabinoids Screen Ethyl Alcohol 229 08/26/24 08/26/24 08/26/24 06:19 06:52 07:41 WBC RBC Hgb Hct MCV MCH MCHC RDW Plt Count MPV Immature Gran % (Auto) Neut % (Auto) Lymph % (Auto) [place] % (Auto) Eos % (Auto) Baso % (Auto) Lymph # (Auto) [place] # (Auto) Eos # (Auto) Baso # (Auto) Abs Immat Gran (auto) Absolute Neuts (auto) Absolute Nucleated RBC Nucleated RBC % % Immature Plt Fraction PT INR APTT D-Dimer Sodium Potassium Chloride Carbon Dioxide Anion Gap BUN Creatinine Estim Creat Clear Calc Estimated GFR Glucose POC Capillary Glucose Calcium Magnesium Iron TIBC % Saturation Ferritin Total Bilirubin AST ALT Alkaline Phosphatase Troponin I 0.015 D 0.019 D NT-Pro-B Natriuret Pep Total Protein Albumin Lipase Vitamin B12 Folate TSH Urine Color Yellow Urine Appearance Clear Urine pH 6.5 Ur Specific [place] > 1.045 H Urine Protein Negative Urine Glucose (UA) Negative Urine Ketones 1+ H Ur Blood (Man) Negative Urine Nitrate Negative Urine Bilirubin Negative Urine Urobilinogen 1.0 Leukocyte Esterase Rfl Negative Urine Opiates Screen Negative Urine Methadone Screen Negative Ur Barbiturates Screen Positive A Ur Phencyclidine Scrn Negative Ur Amphetamine Screen Negative U Benzodiazepines Scrn Negative Urine Cocaine Screen Positive A U Cannabinoids Screen Negative Ethyl Alcohol 08/26/24 11:09 WBC RBC Hgb Hct MCV MCH MCHC RDW Plt Count MPV Immature Gran % (Auto) Neut % (Auto) Lymph % (Auto) [place] % (Auto) Eos % (Auto) Baso % (Auto) Lymph # (Auto) [place] # (Auto) Eos # (Auto) Baso # (Auto) Abs Immat Gran (auto) Absolute Neuts (auto) Absolute Nucleated RBC Nucleated RBC % % Immature Plt Fraction PT INR APTT D-Dimer Sodium Potassium Chloride Carbon Dioxide Anion Gap BUN Creatinine Estim Creat Clear Calc Estimated GFR Glucose POC Capillary Glucose 118 H Calcium Magnesium Iron TIBC % Saturation Ferritin Total Bilirubin AST ALT Alkaline Phosphatase Troponin I NT-Pro-B Natriuret Pep Total Protein Albumin Lipase Vitamin B12 Folate TSH Urine Color Urine Appearance Urine pH Ur Specific [place] Urine Protein Urine Glucose (UA) Urine Ketones Ur Blood (Man) Urine Nitrate Urine Bilirubin Urine Urobilinogen Leukocyte Esterase Rfl Urine Opiates Screen Urine Methadone Screen Ur Barbiturates Screen Ur Phencyclidine Scrn Ur Amphetamine Screen U Benzodiazepines Scrn Urine Cocaine Screen U Cannabinoids Screen Ethyl Alcohol Quality VTE Prophylaxis VTE prophylaxis: mechanical ordered
[2024-08-26 17:48] LABS: Glucose Point of Care 152 mg/dl (65-105)
[2024-08-27] VITALS (12 sets, daily range): BP systolic 100–135; BP diastolic 83–99; PULSE 87–113; RESP 16–20; TEMP 36.3–37.1; O2SAT 97–99
[2024-08-27 00:10] LABS: Glucose Point of Care 97 mg/dl (65-105)
[2024-08-27] MEDS: chlordiazePOXIDE (*CRX) 25 MG CAPSULE PO ×4 (00:25→17:47)
[2024-08-27 03:56] LABS: Basophils Percent Auto 1.2 % (0.2-1.2); Eosinophils Percent Auto 0.9 % (0-4.4); Hematocrit 40.8 % (42.0-52.0); Hemoglobin 14.4 g/dL (14.0-18.0); Immature Granulocyte Absolute 0.01 K/mm3 (0.00-0.031); Immature Granulocyte Percent A 0.3 % (0-0.5); Lymphocytes Absolute Auto 0.56 K/mm3 (0.9-3.2); Lymphocytes Percent Auto 16.4 % (18.3-44.2); Mean Corpuscular HGB Conc 35.3 g/dl (32-36); Mean Corpuscular Hemoglobin 35.8 pg (26-34); Mean Corpuscular Volume 101.5 fl (80-100); Mean Platelet Volume 11.8 fl (7.4-10.4); Monocytes Absolute Auto 0.5 K/mm3 (0.1-0.6); Monocytes Percent Auto 13.8 % (2.6-8.5); Neutrophils Absolute Auto 2.3 K/mm3 (1.3-6.7); Neutrophils Percent Auto 67.4 % (45.5-73.1); Nucleated Red Blood Cells Perc 0.6 % (0.0-0.2); Platelet Count Result 38 k/mm3 (150-375); Red Blood Count 4.02 M/mm3 (4.6-6.20); Red Cell Distribution Width 13.3 % (11.5-14.5); White Blood Count 3.4 K/mm3 (4.5-10.0)
[2024-08-27 04:06] LABS: Alanine Aminotransferase 61 U/L (6-50); Albumin Level 4.6 g/dL (3.5-5.1); Alkaline Phosphatase 72 U/L (38-126); Anion Gap 14 mmol/L (4-12); Aspartate Amino Transferase 101 U/L (17-59); Bilirubin,Total 1.4 mg/dL (0.2-1.3); Blood Urea Nitrogen 10 mg/dL (9-20); Calcium 9.8 mg/dL (8.4-10.2); Carbon Dioxide 22 mmol/L (22-30); Chloride 96 mmol/L (98-107); Estimated CRCL calculation 141 ml/min; Estimated Glomerular Filt Rate > 60; Glucose 104 mg/dL (65-110); Potassium 3.7 mmol/L (3.4-5.0); Sodium 132 mmol/L (137-145)
--- NOTE | 2024-08-27 07:49 | P.CDI_ITS ---
CDI Query Clarification Request BMI: 24.9 Nutritional Diagnostic Statement: Please refer to the comprehensive nutrition assessment for further information. If you agree with diagnosis of Severe malnutrition related to chronic alcohol abuse as evidenced by intakes <75% needs >3 months; moderate muscle wasting and fat loss. Please specify severity if known: * Mild * Moderate * Severe * Other/Unknown <Fabiana Concepcion RN - Last Filed: 08/27/24 07:49> Provider Comments moderate malnutrition <Cheryl White APRN - Last Filed: 08/27/24 11:09>
[2024-08-27] MEDS: THIAMINE HCL INJ 500 MG in SODIUM CHLORIDE 0.9% IV 100 ML 208 MG IVPB (09:16)
[2024-08-27] MEDS: FOLIC ACID 1 MG TABLET PO (09:17)
[2024-08-27] MEDS: MULTIVITAMINS THERAPEUTIC TAB (*BKC) 1 TABLET PO (09:17)
[2024-08-27 11:47] LABS: Glucose Point of Care 119 mg/dl (65-105)
--- NOTE | 2024-08-27 13:59 | PM.IMPN ---
Progress Note: A&P Assessment and Plan (1) Atypical chest pain: Code(s): R07.89 - Other chest pain Status: Acute Assessment and Plan: Reports waking up around midnight with midsternal chest pain EKG shown sinus tachycardia with incomplete right bundle branch block with a rate of 122, QTc 435 continuous telemetry monitoring Admit to IMU chest x-ray negative Chest CTA was negative for PE, shown diffuse hepatic steatosis. D-dimer 1.98, troponin 0.012>0.015 Echocardiogram ordered considering history of AR HR better now-100-110's stable- no acute symptoms (2) Alcohol withdrawal: Qualifiers: Complication of substance-induced condition: uncomplicated Qualified Code(s): F10.930 - Alcohol use, unspecified with withdrawal, uncomplicated Code(s): F10.939 - Alcohol use, unspecified with withdrawal, unspecified Status: Acute Assessment and Plan: Patient states that he drank last a 5th of whisky yesterday evening. He states he drinks a 5th of whiskey every day since he was 14 years old. He attempted stopping before and has been unsuccessful. Patient states he has went through withdrawal in the past and has had seizures. l [facility] protocol ETOH level 229 on presentation Patient was given Valium and phenobarbital down in the ER Continue seizure precautions thiamin 500 mg IVPB ordered daily Continue Multivitamin Start folic acid It Sales Consultant consult Consult to case management stable, didnot require any prn meds will move out of IMU if stable overnight- anticipate discharge tomorrow (3) Thrombocytopenia: Code(s): D69.6 - Thrombocytopenia, unspecified Status: Acute Assessment and Plan: Likely secondary to alcoholism/ liver disease Platelet count 40 Will check vitamin B12 and folic acid Consult placed to Hematology/Oncology (4) Transaminitis: Code(s): R74.01 - Elevation of levels of liver transaminase levels Status: Acute Assessment and Plan: AST 177, ALT 78 Continue to trend CTA of the chest shown diffuse hepatic steatosis -will need GI outpt follow up Time Spent With Patient Time with patient: 25 - 35 minutes Subjective Date/time seen: 08/27/24 13:59 Interval history: 49 year old male with a significant past medical history of [place], ETOH abuse, tobacco abuse who presented to the hospital with alcohol withdrawal and chest pain. Patient states he has drank a 5th of whiskey a day since he was 14 years old. He has tried stopping cold turkey before however has been unsuccessful in the past. Patient states that his last alcohol was consumed at 6 pm last night. He went to bed and woke up around midnight with substernal chest pain. He describes it as intermittent and does not radiate. He denies any fever, chills, nausea, vomiting, diarrhea, abdominal pain, or shortness of breath. Work up in the hospital included a chest x-ray which was negative for any acute cardiopulmonary disease. Chest CTA was negative for PE, shown diffuse hepatic steatosis. Initial labs shown a WBC 5.3, RBC 4.22, Plt count 40, D-dimer 1.98, Anion gap 19, Creatinine 0.55, AST 177, ALT 78, Troponin <0.012, ETOH 229. EKG shown sinus tachycardia with incomplete bundle branch block with a rate of 122, QTc 435. Patient was given 1L NS, Valium and Phenobarbital in the ER. Pt is seen and examined. [facility] protocol ordered. 08/27- doing well. didnot require any more prn meds. no hallucination, no shakiness. Review of Systems Review of Systems: All systems reviewed & are unremarkable except as noted in HPI and below Exam Narrative: General: In no acute distress, malnourished Head: atraumatic, no encephalopathy, reporting headache Eyes: PERRLA, sclera injected ENT: moist mucous membranes, nasal passages clear Neck: supple, no JVD, no adenopathy, trachea midline Cardiac: Normal S1 and S2. RRR, No murmur, gallops or friction rubs, peripheral pulses intact. Reports substernal chest pain intermittently Respiratory: Lungs clear to auscultation, no adventitious lung sounds, currently on room air Gastrointestinal: soft, non-distended, non-tender, normoactive bowel sounds. : voiding without difficulty. Extremities: moves all extremities well, no edema Skin: clean, dry, intact. No wounds or lesions. Neuro: Alert and oriented x4, cranial nerves intact, no neuro deficits. Psych: normal mood, normal affect, interactive Const: General: comfortable Objective Data Vital Signs Vital Signs: Vital Signs - 24 hr 08/26/24 14:00 08/26/24 15:17 08/26/24 16:00 Temperature 98.3 F Pulse Rate 110 H 94 Respiratory Rate 16 Blood Pressure 129/95 H 129/95 H Pulse Oximetry 98 Oxygen Delivery Fraction of Inspired Oxygen 08/26/24 16:00 08/26/24 16:00 08/26/24 18:00 Temperature Pulse Rate 90 114 H Respiratory Rate Blood Pressure Pulse Oximetry Oxygen Delivery Room Air Fraction of Inspired Oxygen 08/26/24 19:36 08/26/24 19:52 08/26/24 19:53 Temperature 98.3 F Pulse Rate 111 H 105 H Respiratory Rate 16 15 Blood Pressure 129/95 H 138/98 H Pulse Oximetry 98 98 Oxygen Delivery Room Air Fraction of Inspired Oxygen 08/26/24 19:54 08/26/24 20:42 08/26/24 22:00 Temperature Pulse Rate 111 H 107 H Respiratory Rate Blood Pressure Pulse Oximetry 98 Oxygen Delivery Room Air Fraction of Inspired Oxygen 21 08/26/24 23:55 08/26/24 23:57 08/26/24 23:57 Temperature Pulse Rate 94 94 Respiratory Rate 15 Blood Pressure 138/98 H Pulse Oximetry 98 Oxygen Delivery Room Air Fraction of Inspired Oxygen 21 08/27/24 00:00 08/27/24 03:49 08/27/24 04:00 Temperature 98.4 F 98.7 F Pulse Rate 102 H 95 90 Respiratory Rate 16 16 Blood Pressure 122/85 124/99 H Pulse Oximetry 99 98 Oxygen Delivery Fraction of Inspired Oxygen 08/27/24 04:00 08/27/24 04:00 08/27/24 06:00 Temperature Pulse Rate 87 90 Respiratory Rate 16 Blood Pressure 124/99 H Pulse Oximetry 98 Oxygen Delivery Room Air Fraction of Inspired Oxygen 21 08/27/24 07:26 08/27/24 08:00 08/27/24 11:47 Temperature 97.7 F 97.4 F L Pulse Rate 107 H 108 H Respiratory Rate 16 20 Blood Pressure 100/83 125/91 H Pulse Oximetry 98 99 Oxygen Delivery Room Air Fraction of Inspired Oxygen 08/27/24 12:00 Temperature Pulse Rate Respiratory Rate Blood Pressure Pulse Oximetry 99 Oxygen Delivery Room Air Fraction of Inspired Oxygen Intake/Output Intake/Output: Intake & Output 08/24/24 08/25/24 08/26/24 08/27/24 23:59 23:59 23:59 23:59 Intake Total 2545 1120 Output Total 475 500 Balance 2070 620 Meds/Results Medications: Active Medications Generic Name Dose Route Start Last Admin Trade Name Freq PRN Reason Stop Dose Admin Acetaminophen 650 mg 08/26/24 04:55 Acetaminophen 325 Mg Tablet PO Q4H PRN Mild Pain (1-3) or Fever Chlordiazepoxide HCl 25 mg 08/26/24 12:00 08/27/24 12:09 Chlordiazepoxide (*Crx) 25 Mg Capsule PO 25 mg Q6HR MIRANDA Administration Famotidine 20 mg 08/26/24 06:33 Famotidine 20 Mg Tablet PO DAILY PRN indigestion Folic Acid 1 mg 08/26/24 09:00 08/27/24 09:17 Folic Acid 1 Mg Tablet PO 1 mg DAILY MIRANDA Administration Thiamine HCl 500 mg/ Sodium 105 mls @ 208 mls/hr 08/26/24 09:00 08/27/24 09:16 Chloride IVPB 208 mls/hr DAILY MIRANDA Administration Lorazepam 2 mg 08/26/24 06:33 08/26/24 20:10 Lorazepam Inj (*Crx) 2 Mg/Ml Vial IV PUSH 2 mg Q2H PRN Administration CIWA > 15 Multivitamins Therapeutic 1 tablet 08/26/24 09:00 08/27/24 09:17 Multivitamins Therapeutic Tab (*Bkc) PO 1 tablet DAILY MIRANDA Administration Ondansetron HCl 4 mg 08/26/24 04:55 Ondansetron Inj 4 Mg/2 Ml Vial IV PUSH Q4H PRN Nausea Perflutren Lipid Microsphere 0 ml 08/26/24 06:36 Perflutren Lipid Microspheres 1.5 Ml Vial Diluted To 10 Ml Total Volume IV PUSH 08/29/24 06:36 ONCE PRN adequate visualization Protocol Radiology Results: ITS Impressions Chest X-Ray 08/26/24 05:28 IMPRESSION: 1. No acute cardiopulmonary disease. Chest CTA 08/26/24 05:46 IMPRESSION: 1. No pulmonary embolus. 2. Diffuse hepatic steatosis. Labs Labs: Laboratory Results - last 24 hr 08/26/24 08/26/24 08/27/24 17:46 23:48 03:35 WBC 3.4 L RBC 4.02 L Hgb 14.4 Hct 40.8 L MCV 101.5 H MCH 35.8 H MCHC 35.3 RDW 13.3 Plt Count 38 L MPV 11.8 H Immature Gran % (Auto) 0.3 Neut % (Auto) 67.4 Lymph % (Auto) 16.4 L [place] % (Auto) 13.8 H Eos % (Auto) 0.9 Baso % (Auto) 1.2 Lymph # (Auto) 0.56 L [place] # (Auto) 0.5 Eos # (Auto) 0.0 Baso # (Auto) 0.0 Abs Immat Gran (auto) 0.01 Absolute Neuts (auto) 2.3 Absolute Nucleated RBC 0.020 H Nucleated RBC % 0.6 H % Immature Plt Fraction 10.0 Sodium 132 L Potassium 3.7 Chloride 96 L Carbon Dioxide 22 Anion Gap 14 H BUN 10 Creatinine 0.48 L Estim Creat Clear Calc 141 Estimated GFR > 60 Glucose 104 POC Capillary Glucose 152 H 97 Calcium 9.8 Total Bilirubin 1.4 H AST 101 H ALT 61 H Alkaline Phosphatase 72 Total Protein 8.0 Albumin 4.6 08/27/24 11:44 WBC RBC Hgb Hct MCV MCH MCHC RDW Plt Count MPV Immature Gran % (Auto) Neut % (Auto) Lymph % (Auto) [place] % (Auto) Eos % (Auto) Baso % (Auto) Lymph # (Auto) [place] # (Auto) Eos # (Auto) Baso # (Auto) Abs Immat Gran (auto) Absolute Neuts (auto) Absolute Nucleated RBC Nucleated RBC % % Immature Plt Fraction Sodium Potassium Chloride Carbon Dioxide Anion Gap BUN Creatinine Estim Creat Clear Calc Estimated GFR Glucose POC Capillary Glucose 119 H Calcium Total Bilirubin AST ALT Alkaline Phosphatase Total Protein Albumin Quality VTE Prophylaxis VTE prophylaxis: mechanical ordered
--- NOTE | 2024-08-27 17:14 | PC.NURSE ---
This patient, Khurram Cote, was transferred to [facility] on 08/27/24 at 1707. Personal belongings sent with patient. Report given to Daniela. Appropriate documentation sent with patient. Naima Goff RN
--- NOTE | 2024-08-27 17:20 | PC.NURSE ---
pt transferred in to room 254 via wheelchair, oriented to new room and environment, reviewed plan of care
[2024-08-27 17:55] LABS: Glucose Point of Care 179 mg/dl (65-105)
[2024-08-27] MEDS: LORazepam INJ (*CRX) 2 MG/ML VIAL IV PUSH (21:04)
[2024-08-28 00:31] LABS: Glucose Point of Care 122 mg/dl (65-105)
[2024-08-28] MEDS: chlordiazePOXIDE (*CRX) 25 MG CAPSULE PO ×2 (00:38→06:32)
[2024-08-28 05:29] VITALS: BP 126/91; PULSE 108; RESP 18; TEMP 36.9; O2SAT 99
[2024-08-28 05:30] LABS: Basophils Absolute Auto 0.1 K/mm3 (0.0-0.1); Eosinophils Absolute Auto 0.1 K/mm3 (0-0.3); Hematocrit 43.7 % (42.0-52.0); Immature Granulocyte Absolute 0.02 K/mm3 (0.00-0.031); Immature Granulocyte Percent A 0.4 % (0-0.5); Immature Platelet Fraction Pct 13.5 % (0.9-11.2); Lymphocytes Absolute Auto 0.74 K/mm3 (0.9-3.2); Lymphocytes Percent Auto 14.6 % (18.3-44.2); Mean Corpuscular HGB Conc 34.3 g/dl (32-36); Mean Corpuscular Hemoglobin 35.5 pg (26-34); Mean Corpuscular Volume 103.6 fl (80-100); Mean Platelet Volume 12.1 fl (7.4-10.4); Monocytes Absolute Auto 0.6 K/mm3 (0.1-0.6); Monocytes Percent Auto 11.7 % (2.6-8.5); Neutrophils Absolute Auto 3.6 K/mm3 (1.3-6.7); Neutrophils Percent Auto 70.3 % (45.5-73.1); Nucleated Red Blood Cells Perc 0.4 % (0.0-0.2); Red Blood Count 4.22 M/mm3 (4.6-6.20); Red Cell Distribution Width 13.4 % (11.5-14.5); White Blood Count 5.1 K/mm3 (4.5-10.0)
[2024-08-28 05:38] LABS: Alanine Aminotransferase 74 U/L (6-50); Albumin Level 4.6 g/dL (3.5-5.1); Alkaline Phosphatase 68 U/L (38-126); Anion Gap 14 mmol/L (4-12); Aspartate Amino Transferase 129 U/L (17-59); Blood Urea Nitrogen 12 mg/dL (9-20); Calcium 9.8 mg/dL (8.4-10.2); Carbon Dioxide 21 mmol/L (22-30); Chloride 98 mmol/L (98-107); Estimated CRCL calculation 119 ml/min; Estimated Glomerular Filt Rate > 60; Glucose 105 mg/dL (65-110); Potassium 4.1 mmol/L (3.4-5.0); Sodium 133 mmol/L (137-145)
[2024-08-28 05:53] LABS: Platelet Count Result 57 k/mm3 (150-375)
[2024-08-28] MEDS: FOLIC ACID 1 MG TABLET PO (08:57)
[2024-08-28] MEDS: MULTIVITAMINS THERAPEUTIC TAB (*BKC) 1 TABLET PO (08:57)
[2024-08-28] MEDS: THIAMINE HCL INJ 500 MG in SODIUM CHLORIDE 0.9% IV 100 ML 208 MG IVPB (08:57)
--- NOTE | 2024-08-28 11:35 | P.DS_ITS ---
DS: Admitting Diagnosis Discharge Date 08/28 Admitting Diagnosis alcohol withdrawal DS: Discharge Diagnosis Discharge Diagnosis (1) Atypical chest pain: Code(s): R07.89 - Other chest pain Status: Acute (2) Alcohol withdrawal: Qualifiers: Complication of substance-induced condition: uncomplicated Qualified Code(s): F10.930 - Alcohol use, unspecified with withdrawal, uncomplicated Code(s): F10.939 - Alcohol use, unspecified with withdrawal, unspecified Status: Acute (3) Thrombocytopenia: Code(s): D69.6 - Thrombocytopenia, unspecified Status: Acute (4) Transaminitis: Code(s): R74.01 - Elevation of levels of liver transaminase levels Status: Acute DS: Summary Hospital Course Hospital Course: 49 year old male with a significant past medical history of [place], ETOH abuse, tobacco abuse who presented to the hospital with alcohol withdrawal and chest pain. Patient states he has drank a 5th of whiskey a day since he was 14 years old. He has tried stopping cold turkey before however has been unsuccessful in the past. Patient states that his last alcohol was consumed at 6 pm last night. He went to bed and woke up around midnight with substernal chest pain. He describes it as intermittent and does not radiate. He denies any fever, chills, nausea, vomiting, diarrhea, abdominal pain, or shortness of breath. Work up in the hospital included a chest x-ray which was negative for any acute cardiopulmonary disease. Chest CTA was negative for PE, shown diffuse hepatic steatosis. Initial labs shown a WBC 5.3, RBC 4.22, Plt count 40, D-dimer 1.98, Anion gap 19, Creatinine 0.55, AST 177, ALT 78, Troponin <0.012, ETOH 229. EKG shown sinus tachycardia with incomplete bundle branch block with a rate of 122, QTc 435. Patient was given 1L NS, Valium and Phenobarbital in the ER. Several issues were addressed: #Atypical chest pain: * EKG shown sinus tachycardia with incomplete right bundle branch block with a rate of 122, QTc 435 * continuous telemetry monitoring * Admited to IMU, transitioned to the [facility] on 08/27 * chest x-ray negative * Chest CTA was negative for PE, shown diffuse hepatic steatosis. * D-dimer 1.98, troponin 0.012>0.015 * Echocardiogram ordered considering history of KS- EF 75% * HR better now-100-110's #alcohol withdrawal Patient states that he drank last a 5th of whisky yesterday evening. He states he drinks a 5th of whiskey every day since he was 14 years old. He attempted stopping before and has been unsuccessful. Patient states he has went through withdrawal in the past and has had seizures. l * [facility] protocol * ETOH level 229 on presentation * Patient was given Valium and phenobarbital down in the ER * Continue seizure precautions * thiamin 500 mg IVPB ordered daily * Continue Multivitamin * Start folic acid * Production Line Welder consult * Consult to case management * will taper librium and need close f/u with pcp alcohol cessation is advised # Thrombocytopenia: Likely secondary to alcoholism/ liver disease * Platelet count 40 * Will check vitamin B12 and folic acid * Consult placed to Hematology/Oncology * Patient is the 49-year-old male with history of alcohol abuse has been drinking alcohol since age of 14. He tried quitting alcohol but remains unsuccessful. CTA chest was performed due to chest discomfort showed hepatic steatosis. There was no evidence of pulmonary embolism[place] [address] but he has no symptoms of bleeding and bruising. His thrombocytopenia secondary to hepatic steatosis and alcohol-induced bone marrow suppression. I recommended strongly to quit drinking slowly. Other labs showed normal vitamin B12 level. I will check iron studies as well. He will follow-up in the office for further monitoring of his platelet counts. No need for bone marrow biopsy or testing and testing for autoimmune thrombo cytopenia as the etiology for his thrombocytopenia is quite evident. Follow- up in the office after the discharge. #elevated liver enzymes -will need GI f/u Status at Discharge Functional status at discharge: independent ambulation Overall status at discharge: patient is progressing back to baseline Time Spent with Patient Time attestation: Total time spent providing and/or coordinating discharge services: Time spent: Greater than 30 minutes Exam Narrative: General: In no acute distress, malnourished Head: atraumatic, no encephalopathy, reporting headache Eyes: PERRLA, sclera injected ENT: moist mucous membranes, nasal passages clear Neck: supple, no JVD, no adenopathy, trachea midline Cardiac: Normal S1 and S2. RRR, No murmur, gallops or friction rubs, peripheral pulses intact. Reports substernal chest pain intermittently Respiratory: Lungs clear to auscultation, no adventitious lung sounds, currently on room air Gastrointestinal: soft, non-distended, non-tender, normoactive bowel sounds. : voiding without difficulty. Extremities: moves all extremities well, no edema Skin: clean, dry, intact. No wounds or lesions. Neuro: Alert and oriented x4, cranial nerves intact, no neuro deficits. Psych: normal mood, normal affect, interactive Const: General: comfortable DS: Data Data Completed and Pending Labs on day of discharge: Labs from last 24 hours 08/28/24 08/28/24 08/27/24 05:11 00:28 17:52 WBC 5.1 RBC 4.22 L Hgb 15.0 Hct 43.7 MCV 103.6 H MCH 35.5 H MCHC 34.3 RDW 13.4 Plt Count 57 L MPV 12.1 H Immature Gran % (Auto) 0.4 Neut % (Auto) 70.3 Lymph % (Auto) 14.6 L [place] % (Auto) 11.7 H Eos % (Auto) 2.0 Baso % (Auto) 1.0 Lymph # (Auto) 0.74 L [place] # (Auto) 0.6 Eos # (Auto) 0.1 Baso # (Auto) 0.1 Abs Immat Gran (auto) 0.02 Absolute Neuts (auto) 3.6 Absolute Nucleated RBC 0.020 H Nucleated RBC % 0.4 H % Immature Plt Fraction 13.5 H Sodium 133 L Potassium 4.1 Chloride 98 Carbon Dioxide 21 L Anion Gap 14 H BUN 12 Creatinine 0.58 L Estim Creat Clear Calc 119 Estimated GFR > 60 Glucose 105 POC Capillary Glucose 122 H 179 H Calcium 9.8 Total Bilirubin 1.0 AST 129 H ALT 74 H Alkaline Phosphatase 68 Total Protein 8.0 Albumin 4.6 Phenobarbital 08/27/24 08/26/24 11:44 06:19 WBC RBC Hgb Hct MCV MCH MCHC RDW Plt Count MPV Immature Gran % (Auto) Neut % (Auto) Lymph % (Auto) [place] % (Auto) Eos % (Auto) Baso % (Auto) Lymph # (Auto) [place] # (Auto) Eos # (Auto) Baso # (Auto) Abs Immat Gran (auto) Absolute Neuts (auto) Absolute Nucleated RBC Nucleated RBC % % Immature Plt Fraction Sodium Potassium Chloride Carbon Dioxide Anion Gap BUN Creatinine Estim Creat Clear Calc Estimated GFR Glucose POC Capillary Glucose 119 H Calcium Total Bilirubin AST ALT Alkaline Phosphatase Total Protein Albumin Phenobarbital 5.8 L Discharge Plan Discharge Attending physician on discharge: Andrea Mcarthur Consulting providers: Kyler Lloyd Discharging Clinician: Cheryl White Patient Disposition: Home, Self-Care Activity: may shower Diet: regular Discharge Instructions: You were admitted for alcohol withdrawal and chest pain. Nothing acute was found with the heart. You were treated with librium for alcohol withdrawal- please taper down medication as we discussed. You need to do your best to stop drinking. Please f/u with GI for elevated liver enzyme and for further monitoring. If you don't stop drinking, you may end up with a permanent liver damage- liver cirrhosis YOu saw Dr Lloyd- manager ob for thrombocytopenia Please f/u with him in the office. Patient Instructions: Abuse of Alcohol (GEN), Alcohol Withdrawal (GEN), Alcohol Dependence (GEN) Patient Language: Azeri Stand Alone Forms: General Discharge Information Follow-up/Referrals: Kyler Lloyd MD [Physician] - 2 Weeks Serg Robledo MD [Physician] - 2 Weeks UNKNOWN,DOCTOR [Primary Care Provider] - 2 Weeks Discharge Medications: New folic acid 1 mg Tablet 1 mg PO DAILY Qty: 30 0RF chlordiazepoxide HCl 25 mg capsule 25 mg PO BID PRN (Reason: alcohol withdrawal) Qty: 10 0RF Rx Instructions: take 25 mg twice a day for couple of days, take 25 mg daily for couple of days then 25 mg at bedtime if needed for couple of days. Continued multivitamin [Daily Multi-Vitamin] Tablet 1 tablet PO DAILY famotidine [Acid Controller] 20 mg tablet 20 mg PO DAILY PRN (Reason: indigestion) Date of admission: 08/26/24 04:55 Primary Care Provider: UNKNOWN,DOCTOR Admitting Provider: Jimmy Galeas Attending physician on admission: Jimmy Galeas Condition: Stable Quality VTE Prophylaxis VTE prophylaxis: mechanical ordered
== END 2024-08-28 13:55 | disposition home or self-care (01) ==
LOC: ANHED 05:06 → ANHIMU 09:12 → ANH2MED 08-28 12:03 → ANHIMU 08-31 07:38
PROVIDERS: Internal Medicine Hematology & Oncology; Nurse Practitioner Acute Care; Student in an Organized Health Care Education/Training Program; Admitting Provider Internal Medicine; Emergency Provider Physician Assistant; Visit Provider General Practice
DX: F10.130 Alcohol abuse with withdrawal, uncomplicated (principal); Y90.7 Blood alcohol level of 200-239 mg/100 ml; R07.89 Other chest pain; I25.2 Old myocardial infarction; D69.6 Thrombocytopenia, unspecified; R74.01 Elevation of levels of liver transaminase levels; K76.0 Fatty (change of) liver, not elsewhere classified; F17.290 Nicotine dependence, other tobacco product, uncomplicated; E44.0 Moderate protein-calorie malnutrition; Z68.24 Body mass index [BMI] 24.0-24.9, adult
CPT/HCPCS: 36415; 71045; 71275; 80053; 80184; 80307; 81003; 82077; 82607; 82728; 82746; 82948; 83540; 83550; 83690; 83735; 83880; 84443; 84484; 85025; 85055; 85380; 85610; 85730; 93005; 93306; 96361; 96365; 96374; 96375; 96376; 99285; A9270; G0378; J2060; J2560; J3360; J3411; J7030; Q9967